=== PATIENT | male | born 1980 | race Caucasian/White ===

== ENCOUNTER → 2016-12-11 | Day surgery (SDC) | payer OTHER ==
[~2016-12-11] VITALS: Ht 177.8 cm; Wt 95.0 kg
[~2016-12-11] MED LIST: 0.9% Sodium Chloride 1,000 ML IV PRN; Sodium Chloride LOK Flush 10 mL Syringe IV PRN; fentaNYL-PF 50 mCg/mL 2 mL Inj IVPUSH PRN
[2016-12-11 10:55] VITALS: BP 146/93; PULSE 86; RESP 16; O2SAT 99
[2016-12-11 13:11] VITALS: BP 138/73; PULSE 71; RESP 14; O2SAT 97
[2016-12-11 13:21] VITALS: BP 129/73; PULSE 83; RESP 15; O2SAT 98
[2016-12-11 13:24] VITALS: BP 133/81; PULSE 81; RESP 16; O2SAT 98
--- NOTE | 2016-12-12 05:17 | ENDO ---
[address] [address] ENDOSCOPY PROCEDURE PATIENT: JALEN MCGOVERN : 1980 MR#: [id number] ADMIT: 12/11/2016 JOB ID: [id number] DATE: 12/11/2016 PROCEDURE: Esophagogastroduodenoscopy. INDICATIONS: GERD and chronic diarrhea. Patient's ASA classification is 1. Mallampati score is 2. MEDICATIONS: Versed 5 mg; fentanyl 150 mcg. INSTRUMENT USED: GIF-H180J. PROCEDURE DETAILS: After informed consent was obtained, the patient was brought into the GI suite, where he was placed on oxygen via nasal cannula, and monitored with continuous pulse oximeter, telemetry, and blood pressure monitoring. A time-out was performed. Then, he was placed in the left lateral decubitus position, and medications were administered for sedation. A bite block was placed. The standard EGD scope was inserted through the bite block, and advanced under direct visualization to the second portion of duodenum without difficulty. FINDINGS: 1. Normal-appearing duodenal bulb, first and second portion. Multiple random biopsies were obtained. 2. Normal-appearing pylorus, antrum, and gastric body. 3. Retroflexed views in the gastric body revealed a normal-appearing cardia and fundus. 4. Multiple random biopsies were obtained throughout the antrum and body of the stomach. 5. The GE junction was at approximately 40 cm. There was; however, two short tongues of salmon-colored mucosa arising up to 38 cm, suggestive of Theodore's. Multiple random biopsies were obtained. The remainder of the esophagus was otherwise unremarkable. 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 RECOMMENDATIONS: 1. Await biopsy results. 2. Proceed to colonoscopy.
--- NOTE | 2016-12-12 05:22 | ENDO ---
[address] [address] ENDOSCOPY PROCEDURE PATIENT: JALEN MCGOVENR : 1980 MR#: [id number] ADMIT: 12/11/2016 JOB ID: [id number] DATE: 12/11/2016 PROCEDURE: Colonoscopy. INDICATION: Chronic diarrhea. MEDICATIONS: Please see above for ASA classification, Mallampati score and medications. INSTRUMENT USED: PCF-H180AL. PREPARATION QUALITY: Fair. PROCEDURE DETAILS: After completion of the EGD exam, the patient was turned, and a digital rectal exam was performed, which was unremarkable. The colonoscope was then inserted into the rectum and advanced under direct visualization to the terminal ileum, which was identified by the presence of the ileocecal valve and appendiceal orifice. Once the terminal ileum was reached, the colonoscope was withdrawn back into the rectum, and the mucosa and lumen were examined. In the rectum, retroflexion was performed. Following retroflexion, remaining air in the rectum was suctioned and the procedure was completed. FINDINGS: 1. Normal-appearing terminal ileum. Multiple random biopsies were obtained. 2. In the cecum, there was an approximately 5 mm sessile polyp, which was removed with cold snare. 3. In the descending colon, there was a diminutive polyp, which was removed with cold biopsy forceps. 4. The remainder of the colon exam was otherwise unremarkable. Multiple random biopsies were obtained throughout the entire colon. IMPRESSION: 1. Colon polyp. 2. Descending colon polyp. RECOMMENDATIONS: 1. Await biopsy results. 2. Followup in GI Clinic. COMPLICATIONS: None. ESTIMATED BLOOD LOSS: Less than 5 mL.
--- NOTE | 2016-12-15 17:03 | PATH ---
SURGICAL PATHOLOGY Attending Physician:Thomas Weinstein CASE STATUS: Signed Out PATIENT NAME: JALEN MCGOVERN PID: [id number] : 1980 DATE COLLECTED:12/11/2016 21:33 SPECIMEN: 1: Duodenum, Biopsy 2: Gastric, Biopsy 3: Esophagus, Biopsy 4: Colon, Biopsy 5: Colon, Polyp 6: Ileum, Biopsy 7: Colon, Polyp CLINICAL HISTORY: 1). DUODENUM BIOPSY 2). GASTRIC BIOPSY RULE OUT H PYLORI 3). DISTAL ESOPHAGUS 4). RANDOM COLON BIOPSY 5). CECAL POLYP 6). TERMINAL ILEUM BIOPSY 7). DESCENDING COLON POLYP FINAL DIAGNOSIS: 1. Duodenum, Biopsy: Duodenal mucosa with no diagnostic abnormality. Negative for active inflammation, features of sprue, dysplasia or malignancy. 2. Stomach, Biopsy: Gastric antral and body mucosa with no diagnostic abnormality. No evidence of Helicobacter organisms on H&E stain. Negative for intestinal metaplasia, dysplasia or malignancy. 3. Distal Esophagus, Biopsy: Squamocolumnar junctional mucosa with focal specialized intestinal metaplasia (1 of 3 columnar pieces), consistent with Theodore's esophagus. Negative for dysplasia or malignancy. 4. Random Colon, Biopsy: Colonic mucosa with no diagnostic abnormality. Negative for active or microscopic colitis. Negative for granulomata, dysplasia or malignancy. 5. Cecal Polyp, Biopsy: Hyperplastic polyp. 6. Terminal Ileum, Biopsy: Ileal mucosa with no diagnostic abnormality. Negative for active inflammation, granulomata, dysplasia or malignancy. 7. Descending Colon Polyp, Biopsy: Hyperplastic polyp. ICD10: K21.0 R19.7 GROSS DESCRIPTION: The specimen is received in seven formalin filled containers labeled with the patient's name. 1). The specimen is labeled "duodenum" and consists of multiple portions of tissue which aggregate to 0.3 x 0.3 x 0.2 CM. The specimen is entirely submitted in cassette 1A. 2). The specimen is labeled "gastric" and consists of 2 portions of tissue which aggregate to 0.3 x 0.3 x 0.2 CM. The specimen is entirely submitted in cassette 2A. 3). The specimen is labeled "distal esophagus" and consists of 4 portions of tissue which aggregate to 0.3 x 0.2 x 0.2 CM. The specimen is entirely submitted in cassette 3A. 4). The specimen is labeled "random colon" and consists of multiple portions of tissue which aggregate to 0.7 x 0.6 x 0.2 CM. The specimen is entirely submitted in cassette 4A. 5). The specimen is labeled "cecal polyp" and consists of 3 portions of tissue which aggregate to 0.2 x 0.2 x 0.2 CM. The specimen is entirely submitted in cassette 5A. 6). The specimen is labeled "terminal ileum" and consists of 3 portions of tissue which aggregate to 0.2 x 0.2 x 0.2 CM. The specimen is entirely submitted in cassette 6A. 7). The specimen is labeled "descending colon polyp" and consists of a 0.2 x 0.2 x 0.2 CM portion of tissue which is entirely submitted in cassette 7A. 12/11/2016NM ICD-9 CODES: CPT CODES: 1: 22436 2: 43086 3: 94784 4: 12490 5: 90295 6: 32803 7: 32344 Electronically Signed Out Isaac Evans MD, Ph.D. [facility] Pathology [facility] [facility], [place] [address] Technical component performed at [facility], [facility] [address], [place], [address]
== END | disposition home or self-care (01) ==
LOC: END 00:21
PROVIDERS: ATTEND Internal Medicine Gastroenterology
DX: K63.5 Polyp of colon (principal); K22.70 Barrett's esophagus without dysplasia; K21.9 Gastro-esophageal reflux disease without esophagitis; R19.7 Diarrhea, unspecified
CPT/HCPCS: 43239; 45380; 45385; 99153; G0500; J2250; J3010; J7030